=== PATIENT | male | born 1960 | race Caucasian/White ===

== ENCOUNTER → 2019-09-01 15:43 | Outpatient (CLI) | payer OTHER, SELFPAY ==
[2019-09-01 18:17] LABS: Cholesterol 273 mg/dL (140-199); HDL Cholesterol 43 mg/dL (40-60); LDL Cholesterol Calculated 183 mg/dL (<100); Triglycerides 234 mg/dL (35-150)
[2019-09-01 18:42] LABS: Vitamin D 25 Hydroxy (D3) 29.4 ng/mL (30.0-100.0)
[2019-09-01 18:48] LABS: Prostate Specific Antigen Scrn 0.584 ng/mL (0.1-4.0)
== END ==
PROVIDERS: PCP Student in an Organized Health Care Education/Training Program; Visit Provider Student in an Organized Health Care Education/Training Program
DX: Z12.5 Encounter for screening for malignant neoplasm of prostate (principal); E78.00 Pure hypercholesterolemia, unspecified; E55.9 Vitamin D deficiency, unspecified
CPT/HCPCS: 36415; 80061; 82306; G0103

== ENCOUNTER → 2020-08-14 15:07 | Outpatient (CLI) | payer OTHER, SELFPAY ==
[2020-08-14 16:04] LABS: Cholesterol 163 mg/dL (140-199); HDL Cholesterol 35 mg/dL (40-60); LDL Cholesterol Calculated 76 mg/dL (<100); Triglycerides 259 mg/dL (35-150)
[2020-08-14 16:39] LABS: Vitamin D 25 Hydroxy (D3) 40.7 ng/mL (30.0-100.0)
== END ==
PROVIDERS: PCP Student in an Organized Health Care Education/Training Program; Referring Provider Student in an Organized Health Care Education/Training Program; Visit Provider Student in an Organized Health Care Education/Training Program
DX: E78.2 Mixed hyperlipidemia (principal); E55.9 Vitamin D deficiency, unspecified
CPT/HCPCS: 36415; 80061; 82306

== ENCOUNTER → 2022-03-25 15:08 | Outpatient (CLI) | payer OTHER, SELFPAY ==
[2022-03-25 15:53] LABS: Alanine Aminotransferase 24 IU/L (<50); Albumin 4.7 g/dL (3.5-5.0); Albumin Globulin Ratio 1.5 (1.0-2.8); Alkaline Phosphatase 61 U/L (38-126); Aspartate Aminotransferase 32 IU/L (17-59); Bilirubin Total 0.5 mg/dL (0.2-1.3); Bilirubin Unconjugated 0.4 mg/dL (0.0-1.1); Globulin 3.1 g/dL (1.7-4.1); HEMOLYSIS < 15 (0-50); Total Protein 7.8 g/dL (6.3-8.2)
[2022-03-25 16:24] LABS: Prostate Specific Antigen Scrn 0.558 ng/mL (0.1-4.0)
== END ==
PROVIDERS: PCP Student in an Organized Health Care Education/Training Program; Referring Provider Student in an Organized Health Care Education/Training Program; Visit Provider Student in an Organized Health Care Education/Training Program
DX: Z12.5 Encounter for screening for malignant neoplasm of prostate (principal); E78.2 Mixed hyperlipidemia; Z79.899 Other long term (current) drug therapy
CPT/HCPCS: 36415; 80076; G0103

== ENCOUNTER → 2023-05-28 07:22 | Outpatient (CLI) | payer OTHER, SELFPAY ==
[2023-05-29 14:58] LABS: Fecal Immunochemical Test Negative (Negative)
== END ==
PROVIDERS: PCP Pediatrics; Referring Provider Pediatrics; Visit Provider Pediatrics
DX: Z12.11 Encounter for screening for malignant neoplasm of colon (principal)
CPT/HCPCS: 82274

== ENCOUNTER 2023-09-10 08:14 | Day surgery (SDC) | payer OTHER, SELFPAY ==
--- NOTE | 2023-09-10 | PATH_ITS ---
[facility] Accession Number: [id number] No. of containers..02 Tissue . 01 Material submitted: . PART A: colon - ASCENDING COLON POLYP PART B: colon - SIGMOID POLYP . 01 Diagnosis: A. Ascending Colon, Biopsy: Colonic mucosa without significant pathologic abnormality. Negative for definitive hyperplasia, dysplasia, and malignancy. . B. Sigmoid Colon, Biopsy: Inflamed polypoid granulation tissue. MRV 09/22/2023 1453 Local . 01 Comment: Initial and deeper sections are obtained and reviewed on part A. . 01 Electronically signed: . Kae Miller MD, Pathologist NPI- [id number] . 01 Gross description: . Part A: ASCENDING COLON POLYP: Received in formalin is 1 fragment(s) of gonzalez, soft tissue measuring 0.7 x 0.7 x 0.1 cm submitted entirely in 1 cassette(s) Part B: SIGMOID POLYP: Received in formalin are 3 fragment(s) of gonzalez, soft tissue measuring 0.3 x 0.3 x 0.3 cm to 0.6 x 0.4 x 0.4 cm submitted entirely in 1 cassette(s) /JOSE 09/11/2023 2210 Local . 01 Pathologist provided ICD-10: Z12.11 . 01 CPT . 322595, 006284 Specimen Comment: A courtesy copy of this report has been sent to [phone] Performed at: [facility] [address] [place] [id number] MD Tereso Montero MD Phone: [phone]
[2023-09-10 08:26] VITALS: BP 144/91; PULSE 73; RESP 18; TEMP 36.5; O2SAT 95; BMI 26.2
[2023-09-10] MEDS: LACTATED RINGERS 1,000 ML 150 ML IV (08:36)
--- NOTE | 2023-09-10 08:52 | PM.HP.1 ---
History of Present Illness History of Present Illness Date Patient Seen: 09/10/23 Time Patient Seen: 08:52 Chief complaint: Screening Colonoscopy Narrative: Yves is a 63-year-old man with a history of colon polyps on his last colonoscopy in 2018. Has no known family history of colon cancer. [facility] Medical History (Updated 09/10/23 @ 08:52 by Tru Bergeron MD) Eczema Herpes (1993) Erectile dysfunction (06/03/16) Current smoker (05/02/16) Reduced libido (05/02/16) Surgical History History of tonsillectomy Family History Mother Essential hypertension Father No problems noted. Social History marital status: household members: spouse lives independently: Yes education level: college Smoking Status: Former smoker alcohol intake: current Meds Home Medications and Allergies Home Medications Medication Instructions Recorded Confirmed Type aspirin 81 mg tablet,delayed 81 mg PO DAILY 09/02/19 09/10/23 History release atorvastatin 20 mg tablet 20 mg PO ONCE PM #30 tabs 08/18/23 09/10/23 Rx Allergies Allergy/AdvReac Type Severity Reaction Status Date / Time No Known Drug Allergies Allergy Verified 01/21/23 14:56 Exam Vital Signs (past 8 hours): - 09/10/23 08:26 Temperature 97.7 F Pulse Rate 73 Respiratory Rate 18 Blood Pressure 144/91 H Pulse Oximetry 95 Oxygen Delivery Method Room Air Oxygen Delivery Method Room Air Const General: healthy appearing Resp Effort & Inspection: normal respiratory effort Assessment & Plan Assessment and plan (1) History of colon polyps: Status: Acute Plan Yves is a 63-year-old man with a history of polyps. We reviewed the risks and benefits of colonoscopy and he would like to proceed.
--- NOTE | 2023-09-10 10:10 | PM.OP.COLON ---
Operative Date/Time/Diagnoses Date of procedure: 09/10/23 Time of procedure: 10:10 Pre-op diagnosis: History of polyps Post-op diagnosis: same Procedure & Clinicians Study performed: Colonoscopy Same procedure as scheduled: Yes Surgeon: Tru Bergeron Procedure Notes Procedure in detail: Surgeon: Tru Bergeron MD Anesthesia: Moses Ramirez CRNA Procedure: The patient was brought to the endoscopy suite, placed in left lateral decubitus position. The patient was connected to monitoring devices. A time-out was performed. Sedation was administered. Once the patient was adequately sedated, a digital rectal exam was performed and was normal. The scope was then inserted and advanced to the cecum where the appendiceal orifice was identified and photographed. The scope was then slowly withdrawn over greater than 6 minutes. The mucosa was thoroughly inspected. There was a 3 mm polyp in the ascending colon removed with a cold snare. There were scattered diverticula greatest in the sigmoid colon. There was a 1 cm polyp in the sigmoid colon removed with a cold snare. The polyp fragmented when it came through the channel. Hemostasis was observed. The scope was retroflexed in the rectum. Internal hemorrhoids were noted. The scope was straightened and removed. The patient was awakened and brought to recovery. Scope withdrawal time: 20 minutes Sedation time: 32 minutes EBL: 10 mL Findings: 3 mm polyp in the ascending colon, 1 cm polyp in the sigmoid colon, diverticulosis and internal hemorrhoids Post-procedure Disposition: PACU
[2023-09-10 10:11] VITALS: BP 107/75; PULSE 60; RESP 12; TEMP 35.9; O2SAT 95
[2023-09-10 10:16] VITALS: BP 118/86; PULSE 61; RESP 18; O2SAT 95
[2023-09-10 10:22] VITALS: BP 114/83; PULSE 54; RESP 16; TEMP 36.3; O2SAT 95
[2023-09-10 10:25] VITALS: BP 118/83; PULSE 55; RESP 18; O2SAT 94
== END 2023-09-10 10:35 | disposition home or self-care (01) ==
PROVIDERS: PCP Pediatrics; Referring Provider Surgery; Visit Provider Surgery
PROC: 0DJD8ZZ Inspection of Lower Intestinal Tract, Via Natural or Artificial Opening Endoscopic (ICD-10-PCS; CPT 45378; principal; 2023-09-10 09:15)
DX: Z12.11 Encounter for screening for malignant neoplasm of colon (principal); Z86.010 Personal history of colon polyps; K57.30 Diverticulosis of large intestine without perforation or abscess without bleeding; K64.8 Other hemorrhoids; K63.5 Polyp of colon
CPT/HCPCS: 45385; J2704

== ENCOUNTER → 2023-09-23 07:43 | Outpatient (CLI) | payer OTHER, SELFPAY ==
--- NOTE | 2023-09-23 07:52 | DI.CT.S_ITS ---
PROCEDURE: CT LUNG LOW DOSE SCREENING INDICATIONS: Personal history of nicotine dependence TECHNIQUE: Noncontrast 2.0-2.5 mm thick sections acquired from the pulmonary apices to the posterior costophrenic angles. 7 mm thick axial MIP, and 5 mm coronal and sagittal reformats were then acquired. For radiation dose reduction, the following was used: automated exposure control, adjustment of mA and/or kV according to patient size. COMPARISON: None. FINDINGS: Image quality: Diagnostic. Lower Neck: No enlarged lymph nodes. Thyroid: No thyroid nodules which require sonographic follow up, per consensus guidelines. Axillae: No enlarged lymph nodes. Chest Wall: Unremarkable. Bones: Unremarkable. Lungs and Pleura: No pneumothorax or pleural effusions. There is a 1.0 x 1.5 cm mass within the lateral aspect of the right upper lobe (series 3/image 146). There is a 6 mm pulmonary nodule within the left upper lobe (series 3/image 177). No acute airspace opacities. No pleural effusion or pneumothorax. Heart: Heart size is normal. No pericardial effusion. Thoracic Vessels: The aorta and pulmonary arteries demonstrate normal size. Scattered atheromatous calcifications are present within the aortic arch. Mediastinum and Sarah: No enlarged lymph nodes. Esophagus: No wall thickening. No hiatal hernia. Upper Abdomen: Visualized upper abdomen solid organs and bowel loops appear normal. IMPRESSION: 1. 1.0 x 1.5 cm right upper lobe mass. Suspicious. PET-CT or CT-guided biopsy recommended. 2. 6 mm left pulmonary nodule. Six-month CT follow-up recommended. Clinically Significant Non-pulmonary Findings: None. Dictated by: Sherri Webb M.D. on 09/23/2023 at 10:32 Approved by: Sherri Webb M.D. on 09/23/2023 at 10:38
== END ==
PROVIDERS: PCP Family Medicine; Referring Provider Family Medicine; Visit Provider Family Medicine
DX: Z12.2 Encounter for screening for malignant neoplasm of respiratory organs (principal); Z87.891 Personal history of nicotine dependence; R91.8 Other nonspecific abnormal finding of lung field
CPT/HCPCS: 71271

== ENCOUNTER → 2023-09-24 07:06 | Outpatient (CLI) | payer OTHER, SELFPAY ==
[2023-09-24 07:57] LABS: Add Manual Diff / Slide Review NO; Basophils Absolute Auto 300 /uL (0-100); Basophils Percent Auto 2.5 % (0-2); Eosinophils Absolute Auto 200 /uL (0-450); Eosinophils Percent Auto 1.6 % (2-4); Hematocrit 48.9 % (41-53); Hemoglobin 16.5 g/dL (13.5-17.5); Lymphocytes Absolute Auto 2200 /uL (1100-4500); Lymphocytes Percent Auto 21.2 % (25-40); Mean Corpuscular HGB Conc 33.8 % (30-36); Mean Corpuscular Hemoglobin 26.8 PG (26-34); Mean Corpuscular Volume 79.4 fL (80-100); Monocytes Absolute Auto 800 /uL (0-900); Monocytes Percent Auto 7.5 % (3-14); Neutrophils Absolute Auto 7000 /uL (1500-7000); Neutrophils Percent Auto 67.2 % (50-75); Platelet Count 831 X10^3/uL (150-400); Red Blood Cell Count 6.16 X10^6/uL (4.5-5.9); Red Cell Distribution Width 15.8 % (11.6-14.8); White Blood Cell Count 10.4 X10^3/uL (4.5-11.0)
[2023-09-24 08:07] LABS: Alanine Aminotransferase 34 IU/L (<50); Albumin 4.4 g/dL (3.5-5.0); Albumin Globulin Ratio 1.4 (1.0-2.8); Alkaline Phosphatase 56 U/L (38-126); Aspartate Aminotransferase 30 IU/L (17-59); BUN Creatinine Ratio 18.4 (6-22); Bilirubin Total 0.7 mg/dL (0.2-1.3); Blood Urea Nitrogen 19 mg/dL (9-20); Calcium 9.9 mg/dL (8.4-10.2); Carbon Dioxide 21 mmol/L (22-32); Chloride 109 mmol/L (98-107); Cholesterol 188 mg/dL (140-199); Estimated Glomerular Filt Rate > 60 mL/min (>60); Globulin 3.2 g/dL (1.7-4.1); Glucose 102 mg/dL (80-110); HDL Cholesterol 41 mg/dL (40-60); HEMOLYSIS < 15 (0-50); LDL Cholesterol Calculated 102 mg/dL (<100); Potassium 5.6 mmol/L (3.4-5.1); Sodium 139 mmol/L (137-145); Total Protein 7.6 g/dL (6.3-8.2); Triglycerides 226 mg/dL (35-150)
[2023-09-24 08:26] LABS: Platelet Estimate Increased on smear
[2023-09-24 08:27] LABS: Microcytosis 1+
[2023-09-24 13:04] LABS: HEMOLYSIS < 15 (0-50); Iron 103 ug/dL (49-181)
[2023-09-24 13:18] LABS: Percent Iron Saturation 33 % (20-50); Total Iron Binding Capacity 310 ug/dL (261-462); Transferrin 288 mg/dL (206-381)
== END ==
PROVIDERS: PCP Family Medicine; Referring Provider Family Medicine; Visit Provider Family Medicine
DX: E78.2 Mixed hyperlipidemia (principal); E61.1 Iron deficiency; Z87.891 Personal history of nicotine dependence
CPT/HCPCS: 36415; 80053; 80061; 83540; 83550; 85025

== ENCOUNTER → 2024-01-22 16:00 | Outpatient (CLI) | payer OTHER, SELFPAY ==
[2024-01-22 18:02] LABS: Basophils Absolute Auto 100 /uL (0-100); Basophils Percent Auto 1.2 % (0-2); Eosinophils Absolute Auto 100 /uL (0-450); Eosinophils Percent Auto 1.4 % (2-4); Hematocrit 47.3 % (41-53); Hemoglobin 15.9 g/dL (13.5-17.5); Lymphocytes Absolute Auto 2000 /uL (1100-4500); Lymphocytes Percent Auto 22.4 % (25-40); Mean Corpuscular HGB Conc 33.6 % (30-36); Mean Corpuscular Hemoglobin 26.9 PG (26-34); Mean Corpuscular Volume 80.1 fL (80-100); Monocytes Absolute Auto 700 /uL (0-900); Monocytes Percent Auto 7.9 % (3-14); Neutrophils Absolute Auto 6000 /uL (1500-7000); Neutrophils Percent Auto 67.1 % (50-75); Platelet Count 812 X10^3/uL (150-400); Red Blood Cell Count 5.91 X10^6/uL (4.5-5.9); White Blood Cell Count 8.9 X10^3/uL (4.5-11.0)
[2024-01-22 18:06] LABS: Add Manual Diff / Slide Review SLIDE REVIEW
[2024-01-22 18:24] LABS: RBC Morphology Normal Morphology
== END ==
PROVIDERS: PCP Family Medicine; Referring Provider Family Medicine; Visit Provider Family Medicine
DX: D75.839 Thrombocytosis, unspecified (principal); I71.43 Infrarenal abdominal aortic aneurysm, without rupture; R91.8 Other nonspecific abnormal finding of lung field
CPT/HCPCS: 36415; 85025

== ENCOUNTER → 2024-04-22 15:44 | Outpatient (CLI) | payer OTHER, SELFPAY ==
--- NOTE | 2024-04-22 15:45 | DI.CT.S_ITS ---
PROCEDURE: CT CHEST WO CON INDICATIONS: FU RUL LUNG NODULE,HX OF TOBACCO USE TECHNIQUE: Noncontrast 2.0-2.5 mm thick sections acquired from the pulmonary apices to the posterior costophrenic angles. 7 mm thick axial MIP, and 5 mm coronal and sagittal reformats were then acquired. For radiation dose reduction, the following was used: automated exposure control, adjustment of mA and/or kV according to patient size. COMPARISON: [facility], CT, CT LUNG LOW DOSE SCREENING, 09/23/2023, 7:53. FINDINGS: Image quality: Diagnostic. Lower Neck: No enlarged lymph nodes. Thyroid: No thyroid nodules which require sonographic follow up, per consensus guidelines. Axillae: No enlarged lymph nodes. Chest Wall: Unremarkable. Bones: Unremarkable. Lungs and Pleura: Lateral aspect the right upper lobe, previously described mass lesion has enlarged in the interval and now measuring 1.7 by 1.0 cm, previously 1.5 x 1.0 cm. Mild underlying pulmonary emphysema. Left upper lobe 5 mm nodule on image 3/178 is relatively stable from prior exam Heart: Heart size is normal. No pericardial effusion. Thoracic Vessels: The aorta and pulmonary arteries demonstrate normal size. Mediastinum and Sarah: No enlarged lymph nodes. Esophagus: No wall thickening. No hiatal hernia. Upper Abdomen: Visualized upper abdomen solid organs and bowel loops appear normal. IMPRESSION: Right upper lobe pulmonary mass lesion is slightly larger than the prior exam, and shows PET activity. Biopsy advised Stable 5 mm left upper lobe nodule. Mild underlying pulmonary emphysema LUNG-RADS 4B; biopsy advised Approved by: Andrés Wood M.D. on 04/22/2024 at 20:45
== END ==
PROVIDERS: PCP Family Medicine; Referring Provider Internal Medicine; Visit Provider Internal Medicine
DX: R91.8 Other nonspecific abnormal finding of lung field (principal); J43.9 Emphysema, unspecified; Z87.891 Personal history of nicotine dependence
CPT/HCPCS: 71250

== ENCOUNTER 2024-06-24 07:56 | Outpatient (CLI) | payer OTHER, SELFPAY ==
[2024-06-24] VITALS (19 sets, daily range): BP systolic 114–159; BP diastolic 69–95; PULSE 53–76; RESP 11–20; TEMP 36.6–36.8; O2SAT 91–95
--- NOTE | 2024-06-24 | PATH_ITS ---
[facility] Accession Number: [id number] No. of containers..01 Tissue . 01 Material submitted: . lung - RIGHT LUNG BIOPSY . 01 Diagnosis: RIGHT LUNG, IMAGE-GUIDED BIOPSIES: Minute fragments of benign alveolar parenchyma with few scattered pigment-laden (smoker's) macrophages. Negative for malignancy. MRV 06/29/2024 1440 Local . 01 Comment: If clinically and radiologically there is suspicion for malignancy, the area of interest might not be sampled. Deeper levels have been examined. . 01 Electronically signed: . Vinh Maza MD, Pathologist NPI- [id number] . 01 Gross description: . Received in formalin with two patient identifiers and right upper lung lesion, consists of four gonzalez-white hemorrhagic cylindrical cores of white soft tissue ranging from 0.3 cm in length by 0.1 cm in diameter up to 0.8 cm in length by 0.1 cm in diameter. The specimens are entirely submitted in cassette A1. ([id number]) /MRV 06/27/2024 0612 Local . 01 Pathologist provided ICD-10: R91.1 . 01 CPT . 343381 Specimen Comment: A courtesy copy of this report has been sent to [phone] Performed at: 01 [facility] [address], [place], [place] [id number] MD Tereso Montero MD Phone: [phone]
--- NOTE | 2024-06-24 07:56 | DI.CT.S_ITS ---
PROCEDURE: CT BIOPSY LUNG LT Sedation analgesia for 30 minutes. INDICATIONS: Enlarging right lung nodule. CT guided lung biopsy. TECHNIQUE: The indications, alternatives, benefits, risks, and possible complications of the procedure were communicated to the patient. Informed written consent from the patient was obtained and placed in the chart. Continuous EKG and hemodynamic monitoring was started by trained personnel. The patient was brought to the CT suite and ground crew lines person spiral CT imaging was performed with localization grid. The appropriate site for percutaneous access to the biopsy target was marked, was prepped and draped sterilely, and was infused with local anaesthesia. Under CT guidance, a core biopsy trocar and needle set was advanced to the biopsy target, and specimen(s) were obtained. The trocar and needle were then removed, and the patient was sent for post-procedure monitoring. Only a tiny nonsignificant pneumothorax was seen on immediate postop CT which was not seen on follow-up x-ray of the chest 2 hours later. COMPARISON: None. FINDINGS: Biopsy site: Right lung lesion just over 1 centimeter in size, has been increasing on size on previous imaging Needle: 17/8 gauge biopsy needle with introducer trocar. Number of passes: 4 Medications: 1% lidocaine for local anaesthesia. IV Fentanyl and Versed for conscious sedation for 30 minutes (see nursing record). Complications: None. IMPRESSION: Successful CT-guided biopsy of right lung lesion Dictated by: Federico Dietrich M.D. on 06/27/2024 at 10:21 Approved by: Federico Dietrich M.D. on 06/27/2024 at 10:34
[2024-06-24 08:24] LABS: Hematocrit 50.8 % (41-53); Platelet Count 887 X10^3/uL (150-400)
[2024-06-24 08:26] LABS: Prothrombin Time 11.4 SECONDS (9.4-12.5)
[2024-06-24 08:28] LABS: PTT Partial Thromboplastin Tim 42 SECONDS (25.1-36.5)
[2024-06-24] MEDS: MIDAZOLAM 2 MG/2 ML VIAL 0.5 MG IV (09:15)
[2024-06-24] MEDS: fentaNYL 100 MCG/2 ML INJ 50 MCG IV ×2 (09:15→09:30)
[2024-06-24] MEDS: MIDAZOLAM 5 MG/ML VIAL IV (09:30)
--- NOTE | 2024-06-24 11:45 | DI.RAD.S_ITS ---
PROCEDURE: XR CHEST 1V INDICATIONS: Post right lung biopsy TECHNIQUE: One view of the chest was acquired. COMPARISON: CT lung biopsy performed today. FINDINGS: Surgical changes and devices: None. Lungs and pleura: Minimal opacity of the right lung site of previous biopsy. Otherwise no consolidation. No pleural effusions or pneumothorax. Mediastinum: Mediastinal contours appear normal. Heart size is normal. Bones and chest wall: No suspicious bony lesions. Overlying soft tissues appear unremarkable. IMPRESSION: No pneumothorax seen status post right lung biopsy Dictated by: Federico Dietrich M.D. on 06/24/2024 at 15:10 Approved by: Federico Dietrich M.D. on 06/24/2024 at 15:12
== END 2024-06-24 12:02 | disposition home or self-care (01) ==
LOC: CT 07:56
PROVIDERS: Radiology Diagnostic Radiology; PCP Family Medicine; Referring Provider Internal Medicine Critical Care Medicine; Visit Provider Internal Medicine Critical Care Medicine
DX: R91.1 Solitary pulmonary nodule (principal); R91.8 Other nonspecific abnormal finding of lung field
CPT/HCPCS: 32408; 71045; 85014; 85049; 85610; 85730; 99152; 99153; J2250; J3010